=== PATIENT | female | born 1975 | race African-American/Black ===

== ENCOUNTER 2021-10-17 18:29 | Emergency (ER) | payer SELFPAY ==
[~2021-10-17] VITALS: Ht 170.2 cm; Wt 63.0 kg
[2021-10-17 18:34] VITALS: BP 137/100
== END 2021-10-17 20:39 | disposition left against medical advice (07) ==
LOC: ER 18:29
DX: Z53.21 Procedure and treatment not carried out due to patient leaving prior to being seen by health care provider (principal)